=== PATIENT | male | born 2000 | race Two or more races ===

== ENCOUNTER 2025-03-24 10:20 | Emergency (ER) | payer SELFPAY ==
[~2025-03-24] VITALS: Ht 175.3 cm; Wt 81.0 kg
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
[2025-03-24 12:07] VITALS: BP 122/81; PULSE 73; RESP 16; TEMP 98.8; O2SAT 99
[2025-03-24] MEDS: KETOROLAC TROMETH 60MG/2ML VIAL IM ONE (12:11)
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
[2025-03-24] MEDS ORDERED: DICL50TA2 PO (12:47)
[2025-03-24] MEDS ORDERED: CYCL-839 PO (12:47)
== END 2025-03-24 13:03 | disposition home or self-care (01) ==
LOC: ER 10:20 → EDBD 10:20 → ER 13:03
DX: S60.912A Unspecified superficial injury of left wrist, initial encounter (principal); M62.838 Other muscle spasm; R42 Dizziness and giddiness; V43.52XA Car driver injured in collision with other type car in traffic accident, initial encounter; Y93.89 Activity, other specified; Y92.410 Unspecified street and highway as the place of occurrence of the external cause; Y99.8 Other external cause status
CPT/HCPCS: 72125; 73110; 96372; 99285; J1885